=== PATIENT | male | born 1975 | race Caucasian/White ===

== ENCOUNTER 2018-11-28 11:04 | Emergency (ER) | payer OTHER ==
[~2018-11-28] VITALS: Ht 182.9 cm; Wt 72.6 kg
[~2018-11-28 11:04] MED LIST: KEFLEX500 MG PO; NOHOMEMEDICATIONS; ULTRAM 50MG TAB50 MG PO
[2018-11-28 12:01] LABS: ABSOLUTE LYMPHOCYTES 1.4 thou/uL (0.8-5.3); ABSOLUTE MONOCYTES 0.6 thou/uL (0.0-1.2); ABSOLUTE NEUTROPHILS 3.7 thou/uL (1.6-8.1); BASOPHILS 0.8 %; EOSINOPHILS 0.3 %; HEMATOCRIT 47.3 % (42.0-52.0); HEMOGLOBIN 16.1 gm/dL (14.0-18.0); LYMPHOCYTES 25.1 %; MCH 30.9 pg (26.0-34.0); MCV 90.7 fL (80.0-100.0); MONOCYTES 9.7 %; MPV 8.2 fl. (7.2-11.1); NUCLEATED RBCS 0 /100WBC; PLATELET COUNT* 265 thou/uL (150-400); POLYS 64.1 %; RBC 5.21 mil/uL (4.50-6.00); RDW-CV 13.9 % (10.5-14.5); WBC 5.7 thou/uL (4.0-11.0)
[2018-11-28 12:04] LABS: CALCIUM 8.7 mg/dL (8.5-10.1); POTASSIUM 3.5 mmol/L (3.5-5.1)
[2018-11-28 12:16] LABS: TOTAL BILIRUBIN 0.5 mg/dL (<0.1-1.0); TOTAL PROTEIN 7.3 g/dL (6.4-8.2)
[2018-11-28 12:18] LABS: ACETAMINOPHEN < 2 ug/mL (10-30); ALCOHOL < 10 mg/dL (<10); SALICYLATE < 2.8 mg/dL (2.8-20.0)
[2018-11-28 13:06] LABS: URINE BILIRUBIN NEGATIVE (Negative); URINE BLOOD NEGATIVE (Negative); URINE CLARITY CLEAR; URINE COLOR YELLOW; URINE GLUCOSE-RANDOM NEGATIVE (Negative); URINE KETONES NEGATIVE (Negative); URINE LEUKOCYTES-REFLEX NEGATIVE (Negative); URINE NITRITE-REFLEX NEGATIVE (Negative); URINE PROTEIN NEGATIVE (Negative); URINE UROBILINOGEN 0.2 E.U./dl (0.2-1.0)
[2018-11-28 13:13] LABS: AMP/METHAMP POSITIVE (Negative); BARBITURATES Negative (Negative); BENZODIAZEPINES Negative (Negative); COCAINE Negative (Negative); METHADONE Negative (Negative); OPIATES Negative (Negative); PCP Negative (Negative); THC Negative (Negative)
[2018-11-28 16:37] VITALS: BP 136/103
== END 2018-11-28 16:38 | disposition home or self-care (01) ==
LOC: M.ERS 11:04
PROVIDERS: Family Medicine
DX: F15.10 Other stimulant abuse, uncomplicated (principal); Z79.899 Other long term (current) drug therapy